=== PATIENT | female | born 1960 | race Caucasian/White ===

== ENCOUNTER 2016-06-29 07:20 | Inpatient (IN) | payer BC ==
[~2016-06-29 07:20] MED LIST: Bupivacaine 0.5%/EPINEPHrine 1:200,000 50 ML MDV ONE
[2016-06-29] MEDS: Scopolamine 1.5 MG Transdermal Patch TOP SCH ×2 (07:44→15:47)
[2016-06-29] MEDS ORDERED: Metoprolol Succinate 25 MG Tab.ER PO ONE (07:53)
[2016-06-29] MEDS ORDERED: Gabapentin 300 MG Cap PO ONE (08:00)
[2016-06-29] MEDS ORDERED: Celecoxib 200 MG Cap PO ONE (08:00)
[2016-06-29] MEDS ORDERED: Acetaminophen 500 MG Tab PO ONE (08:00)
[2016-06-29] MEDS ORDERED: cefOXitin 2 GM in Sodium Chloride 0.9% 50 ML IV ONE (08:00)
[2016-06-29] MEDS ORDERED: Dextrose 5%-Lactated Ringers 1,000 ML IV SCH (08:00)
[2016-06-29] MEDS ORDERED: Ondansetron 4 MG/2 ML SDV ONE (08:22)
[2016-06-29] MEDS ORDERED: Rocuronium 50 MG/5 ML Vial ONE (08:22)
[2016-06-29] MEDS ORDERED: Dexamethasone 4 MG/ML SDV ONE (08:22)
[2016-06-29] MEDS ORDERED: Neostigmine Methylsulfate 1 MG/ML 5 ML Syringe ONE (08:22)
[2016-06-29] MEDS ORDERED: Propofol 200 MG/20 ML SDV ONE (08:22)
[2016-06-29] MEDS ORDERED: fentaNYL 250 MCG/5 ML SDV ONE ×2 (08:22→12:19)
[2016-06-29] MEDS ORDERED: DEXAMETHASONE NERVRT SCH ×4 (10:00)
[2016-06-29] MEDS ORDERED: EPINEPHRINE NERVRT SCH ×4 (10:00)
[2016-06-29] MEDS ORDERED: [UNRECOGNIZED DRUG - OTHER] NERVRT SCH ×4 (10:00)
[2016-06-29] MEDS ORDERED: Lidocaine 2% 100 MG/5 ML Syringe IVPUSH ONE (10:00)
[2016-06-29] MEDS ORDERED: Ketamine 500 MG/5 ML MDV IV SCH (10:00)
[2016-06-29] MEDS ORDERED: Lidocaine 0.4%/D5W 2 GM/500 ML BAG IV SCH (10:00)
[2016-06-29] MEDS ORDERED: ROPIVACAINE NERVRT SCH ×4 (10:00)
[2016-06-29] MEDS ORDERED: Lactated Ringers 1,000 ML ONE (13:11)
[2016-06-29] MEDS ORDERED: traMADol 50 MG Tab PO PRN (15:12)
[2016-06-29] MEDS ORDERED: HYDROmorphone 1 MG/ML Syringe IV PRN (15:13)
[2016-06-29] MEDS ORDERED: diphenhydrAMINE 50 MG/ML SDV IVPUSH PRN (15:15)
[2016-06-29] MEDS ORDERED: hydrOXYzine HCl 50 MG/ML SDV IM PRN (16:00)
[2016-06-29] MEDS ORDERED: Labetalol 20 MG/4 ML Syringe IVPUSH PRN (16:00)
[2016-06-29] MEDS ORDERED: Ondansetron 4 MG/2 ML SDV IVPUSH PRN (16:00)
[2016-06-29] MEDS ORDERED: SCOPOLAMINE PATCH ASK TOP SCH (16:00)
[2016-06-29] MEDS: Gabapentin 300 MG Cap PO SCH ×2 (16:19→21:15)
[2016-06-29] MEDS: Acetaminophen 325 MG Tab PO SCH ×2 (16:20→21:15)
[2016-06-29] MEDS: Pantoprazole 40 MG Vial IVPUSH SCH (16:21)
[2016-06-29] MEDS: MVI, Adult with Vitamin K 10 ML, Thiamine 200 MG, Chromium/Copper/Mang/Selen/Zn 1 ML in... IV SCH ×4 (16:54)
[2016-06-29] MEDS: cefOXitin 2 GM in Sodium Chloride 0.9% 50 ML IV SCH (17:45)
[2016-06-29] MEDS: Heparin Sodium 5,000 Units/ML Vial SUBCUT SCH (17:46)
[2016-06-29] MEDS: Dextrose 5%-Lactated Ringers 1,000 ML IV SCH (23:30)
[2016-06-30] MEDS: cefOXitin 2 GM in Sodium Chloride 0.9% 50 ML IV SCH ×2 (00:30→05:35)
[2016-06-30] MEDS: Acetaminophen 325 MG Tab PO SCH ×4 (04:40→21:45)
[2016-06-30] MEDS: Dextrose 5%-Lactated Ringers 1,000 ML IV SCH ×3 (05:47→13:54)
[2016-06-30] MEDS: Heparin Sodium 5,000 Units/ML Vial SUBCUT SCH ×2 (06:00→17:38)
[2016-06-30] MEDS: SCOPOLAMINE PATCH CHECK TOP SCH (08:16)
[2016-06-30] MEDS: Gabapentin 300 MG Cap PO SCH ×3 (08:16→21:44)
[2016-06-30] MEDS: Celecoxib 200 MG Cap PO SCH (08:16)
[2016-06-30] MEDS: HYDROmorphone 2 MG Tab PO PRN ×3 (12:31→21:44)
[2016-06-30] MEDS: MVI, Adult with Vitamin K 10 ML, Thiamine 200 MG, Chromium/Copper/Mang/Selen/Zn 1 ML in... IV SCH ×4 (15:08)
[2016-06-30] MEDS: Pantoprazole 40 MG Vial IVPUSH SCH (16:16)
[2016-07-01] MEDS: HYDROmorphone 2 MG Tab PO PRN ×2 (04:13→10:17)
[2016-07-01] MEDS: Acetaminophen 325 MG Tab PO SCH ×2 (04:13→10:18)
[2016-07-01] MEDS: Heparin Sodium 5,000 Units/ML Vial SUBCUT SCH (05:44)
[2016-07-01] MEDS: Celecoxib 200 MG Cap PO SCH (07:38)
[2016-07-01 07:43] VITALS: BP 133/73
[2016-07-01] MEDS: SCOPOLAMINE PATCH CHECK TOP SCH (08:06)
[2016-07-01] MEDS: Gabapentin 300 MG Cap PO SCH (08:34)
[2016-07-01] MEDS ORDERED: Cyanocobalamin (Vitamin B12) 1,000 MCG/ML SDV IM ONE (09:00)
--- NOTE | 2016-07-02 09:04 | CR ---
Postop revision jejunostomy. No gross evidence for contrast leakage. No dilated loops of bowel.
--- NOTE | 2016-07-02 14:11 | PN ---
DATE OF SERVICE: 06/30/2016 The patient has been afebrile with stable vital signs. She did require some TURBINE ATTENDANT use overnight. We will switch over to oral Dilaudid today in addition to the other medications. Otherwise, go up to a regular diet, and she will likely be ready for discharge home tomorrow. Severiano Johnson MD /[id number]
--- NOTE | 2016-07-02 15:08 | DISCH ---
FINAL/DISCHARGE DIAGNOSES: 1. Partial small bowel obstruction secondary to small bowel volvulus. 2. Distortion of jejunojejunostomy by tractioning on small bowel biliopancreatic limb stump. 3. 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 SECONDARY DIAGNOSES: Other Diagnoses: 1. Bariatric surgery. 2. History of hyperlipidemia. OPERATIVE PROCEDURES: This was done on 06/29, diagnostic laparoscopy with lysis of adhesions and: 1. Reduction of small bowel volvulus with closure of internal hernia. 2. Resection of small bowel biliopancreatic limb stump. 3. Small bowel strictureplasty. SUMMARY/HOSPITAL COURSE: This is a 56-year-old status post Louise-en-Y gastric bypass in 2002. She presented with postprandial crampy abdominal pain and bloating suggestive of partial small bowel obstruction. She also complained of some pain in the right upper quadrant. A CT scan was done 2 days prior to admission, which was otherwise normal. On the date of admission, the patient underwent a diagnostic laparoscopy with the above findings noted per the diagnosis list and later underwent the above-stated procedure. Postoperatively, she has tolerated a step 4 regular diet and is having relatively minimal pain. She will be discharged to home with her present home medications plus Dilaudid 2 to 4 mg p.o. q.4 hours p.r.n. pain, #40, along with Tylenol on a p.r.n. basis. Followup will be with Loren Mora PA-C at [facility] on 07/11/2016.
--- NOTE | 2016-07-02 20:23 | OR ---
DATE OF PROCEDURE: 06/29/2016 PREOPERATIVE DIAGNOSIS: Partial small bowel obstruction. POSTOPERATIVE DIAGNOSES: 1. Partial small bowel obstruction secondary to small bowel volvulus. 2. Distortion of jejunojejunostomy by traction of small bowel and biliopancreatic limb stump. 3. Stricture at point of entrance of Louise limb at jejunojejunostomy. OPERATIVE PROCEDURE: Diagnostic laparoscopy with lysis of adhesions: 1. Reduction of small bowel volvulus and closure of internal hernia (25559). 2. Resection of small bowel and biliopancreatic limb stump (48520). 3. Small bowel stricturoplasty (61417). ANESTHESIA: General. PROCESS ENGINEERING INTERN: Loren Mora PA-C. INDICATION FOR PROCEDURE: This is a 56-year-old status post Louise-en-Y gastric bypass around 13 years ago. She presents now with some postprandial crampy abdominal pain and bloating with a picture suggestive of a partial small bowel obstruction. Plan is to proceed with a diagnostic laparoscopy, laparotomy if necessary, and the procedures as indicated. These would include lysis of adhesions, possible bowel resection, and/or other bowel-type bypass procedures. Potential risks including bleeding, infection, injury to underlying viscera, leaks from possible GI tract closures as well as possible persistence or recurrence of symptoms postoperatively were all reviewed and the patient wishes to proceed. DETAILS OF PROCEDURE: The patient was taken to the operating room and placed in the supine position. After general endotracheal anesthesia was induced, a Dudley catheter was inserted and the patient converted to a lithotomy position and was then prepped and draped. In the left lower quadrant, a transverse incision was made. The peritoneal cavity entered under direct vision with an Optiview trocar, inflated to 15 mmHg pressure with CO2. Laparoscope was then reinserted. No underlying trocar insertion site injuries were seen. Eventually 4 additional trocars were placed across the upper and mid abdomen and general exploration was undertaken. As one traced down the Louise limb there, it was noted that the patient had a focal volvulus of the distal Louise limb, biliopancreatic limb, and the jejunojejunostomy. This was rotated posteriorly and rightward through a mesenteric defect underneath the Louise limb. This was reduced. Some additional adhesions were taken down and the anastomosis then examined. The patient was noted to have a distortion of the jejunojejunostomy by traction of the distended biliopancreatic limb with its mesentery and pulling the anastomosis acutely downward and toward the left. At that point, the stump of the biliopancreatic limb was divided with a JERRY stapler more or less flush with the jejunojejunostomy and the underlying mesentery. That segment of bowel was taken down with Harmonic scalpel and specimen delivered from the field. Examination of the jejunojejunostomy still showed what appeared to be a tightened area where the Louise limb entered the anastomosis. Given this, a stricturoplasty was then accomplished with flipping the bowel over on itself and separate staple line between the distal-most Louise limb to the proximal-most common limb. This was accomplished through 2 internal firings of JERRY blanco loads and closed transversely with a purple load. There was no significant mesenteric defect. The angles of the anastomosis were reinforced with 0 Ethibond stitch. At that point, no further problems were noted. The area was irrigated with meropenem-containing saline solution. The trocars were sequentially removed and the peritoneal cavity deflated. The fascia of the 12 mm sites was closed with 0 Vicryl stitch at the fascia level and the skin at each incision with 4-0 Vicryl stitch. Of note, the defect underneath the Louise limb had been tightened with series of 0 Ethibond sutures taken between the mesentery of the Louise limb and the underlying soft tissue consisting of some of the perigastric fat and omentum in that area. The patient was taken to the recovery room in satisfactory condition. There were no evident complications. Physician special event assistant, Loren Mora, played an essential role in assisting in this case, helping to position the patient, retract structures as needed as well as suturing, and cutting sutures when indicated. Her presence improved patient safety and decreased operative time. Severiano Johnson MD /[id number]
== END 2016-07-01 10:25 | disposition home or self-care (01) | DRG 221 ==
LOC: JP.MS 07:20 → JP.SDS 07:20 → EDSTATUS 11:30 → JP.2SS 14:20
PROVIDERS: ADMIT Surgery; ATTEND Surgery
PROC: 0DSA4ZZ Reposition Jejunum, Percutaneous Endoscopic Approach (ICD-10-PCS; principal; 2016-06-29)
PROC: 0DBA4ZX Excision of Jejunum, Percutaneous Endoscopic Approach, Diagnostic (ICD-10-PCS; principal; 2016-06-29)
PROC: 0D1 Gastrointestinal System, Bypass (ICD-10-PCS; principal; 2016-06-29)
DX: K56.69 Other intestinal obstruction (principal); K56.2 Volvulus; E78.5 Hyperlipidemia, unspecified; Z98.84 Bariatric surgery status; D50.9 Iron deficiency anemia, unspecified; I10 Essential (primary) hypertension; F41.8 Other specified anxiety disorders; E55.9 Vitamin D deficiency, unspecified; E53.9 Vitamin B deficiency, unspecified
CPT/HCPCS: 74240; 74240-26; 88307; A9270-GY; C9113; J0171; J0694; J1100; J1170; J1644; J2001; J2405; J2704; J2795; J3010; J3411; J3420; J7042; J7050; J7120